=== PATIENT | male | born 1980 | race African-American/Black ===

== ENCOUNTER 2024-07-17 10:43 | Emergency (ER) | payer SELFPAY ==
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
--- NOTE | ~2024-07-17 | XR_ITS ---
EXAMINATION: XR HAND, LEFT CLINICAL INFORMATION: Diffuse left hand pain COMPARISON: None available. TECHNIQUE: PA, lateral, and oblique views of the left hand. FINDINGS: No evidence of acute fracture or malalignment. Small triscaphe joint osteophytes. Joint spaces are otherwise well preserved. Normal bone mineralization. Soft tissues unremarkable. XR/XR hand LT min 3V IMPRESSION: 1. No evidence of acute fracture or malalignment. 2. Mild triscaphe joint osteoarthritis. Electronically signed by: Sohail Moeller MD 07/17/2024 02:29 PM EDT
[2024-07-17 10:51] VITALS: BP 154/100; BP 160/102; PULSE 60; PULSE 62; RESP 16; TEMP 36.9; O2SAT 99; BMI 25.2
[2024-07-17 10:58] VITALS: BP 154/100; PULSE 62; RESP 16; TEMP 36.9; O2SAT 99
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
[2024-07-17 11:16] VITALS: BP 154/100; PULSE 57; RESP 18; TEMP 36.9; O2SAT 99
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
[2024-07-17] MEDS: oxyCODONE HCl Immed Release 5 MG TABLET 10 MG PO (12:51)
[2024-07-17] MEDS: Ketorolac Tromethamine 15 MG/ML VIAL IM (14:59)
[2024-07-17] MEDS: Diphth,Pertus(ACell),Tet Adult 0.5 ML SYRINGE IM (15:13)
[2024-07-17 16:16] VITALS: BP 144/90; PULSE 65; RESP 18; TEMP 36.9; O2SAT 99
== END 2024-07-17 16:16 | disposition home or self-care (01) ==
PROVIDERS: Emergency Provider Emergency Medicine Emergency Medical Services
DX: S60.512A Abrasion of left hand, initial encounter (principal); S70.212A Abrasion, left hip, initial encounter; M54.2 Cervicalgia; R51.9 Headache, unspecified; M25.552 Pain in left hip; V69.9XXA Occupant (driver) (passenger) of heavy transport vehicle injured in unspecified traffic accident, initial encounter; Y93.89 Activity, other specified; Y92.488 Other paved roadways as the place of occurrence of the external cause; Y99.8 Other external cause status; Z79.899 Other long term (current) drug therapy; Z23 Encounter for immunization
CPT/HCPCS: 70450; 72125; 73130; 73502; 90471; 90715; 96372; 99284; J1885